=== PATIENT | female | born 1945 | race Two or more races ===

== ENCOUNTER 2018-11-05 16:30 | Inpatient (IN) | payer SELFPAY ==
[~2018-11-05] VITALS: Ht 144.8 cm; Wt 41.6 kg
[2018-11-05 20:02] LABS: Basophils # (auto) 0 uL; Basophils % (auto) 0.5 % (0.0-2.0); Eosinophils # (auto) 0.3 uL; Eosinophils % (auto) 3.8 % (0.0-7.0); Hematocrit 41.1 % (36.0-46.0); Hemoglobin 13.5 g/dL (12.2-16.2); Lymphocytes # (auto) 1.9 uL; Lymphocytes % (auto) 25.2 % (10.0-50.0); Monocytes # (auto) 0.7 uL; Monocytes % (auto) 8.6 % (0.0-12.0); Neutrophils # (auto) 4.8 uL; Neutrophils % (auto) 61.9 % (37.0-80.0); Nucleated Red Blood Cells % 0.1 %; Platelet Count (auto) 342 10^3/uL (140-450); Red Blood Cells 4.83 10^6/uL (4.0-5.20); Red Cell Distribution Width 13.3 % (11.8-14.3); White Blood Cell 7.7 10^3/uL (4.4-10.8)
[2018-11-05 20:16] LABS: INR 0.92 (0.9-1.15); Partial Thromboplastin Time 26.4 sec (23.78-33.04); Prothrombin Time 9.9 sec (9.27-12.13)
[2018-11-05 20:17] LABS: Albumin 3.4 g/dL (3.4-5.0); BUN/Creatinine Ratio 29.6; Calcium 8.7 mg/dL (8.5-10.1); Potassium 4.2 mmol/L (3.5-5.1)
[2018-11-05 20:20] LABS: Bilirubin, Total 0.2 mg/dL (0.2-1.0)
[2018-11-06] VITALS (7 sets, daily range): BP systolic 73–150; BP diastolic 50–78
[2018-11-06] MEDS ORDERED: ACETAMINOPHEN 500 MG TAB PO PRN (00:15)
[2018-11-06] MEDS ORDERED: MORPHINE SULFATE 4 MG/ML SYR/VIAL IV PRN ×2 (00:15→12:15)
[2018-11-06] MEDS ORDERED: DEXTROSE (50%) 50ML SYRG IV PRN ×2 (00:15→12:15)
[2018-11-06] MEDS ORDERED: HYDROcodone-ACET 5/325MG TAB PO PRN (00:15)
--- NOTE | 2018-11-06 00:33 | NUR ---
PATIENT ARRIVED TO UNIT Patient arrived on unit via stretcher from ER. Patient was successfully transferred from stretcher to bed with no complications. Patient is A&O X's 4, no distress noted. Patient c/o right hip pain 05/13. Educated patient and family of pain medication that will be provided per orders. They verbalized understanding. Patient is lithuanian speaking only. Son and Daughter is at bedside available to translate. They were educated about using the call light for assistance and the unit. Patient wearing diaper brought from home. Educated patient and family that this is a diaper free facility and different options and measures are taken in substitute of diapers. They stated that they understood but would like to keep the diaper on just for the night. Bed is in lowest/locked position with side rails up X's 2. Call light is within reach of patient. Will continue to monitor and round hourly.
[2018-11-06 00:55] LABS: Basophils # (auto) 0.1 uL; Eosinophils # (auto) 0.3 uL; Eosinophils % (auto) 5.1 % (0.0-7.0); Hematocrit 38.4 % (36.0-46.0); Hemoglobin 12.5 g/dL (12.2-16.2); Lymphocytes % (auto) 30.4 % (10.0-50.0); Mean Corpuscular Hemoglobin 27.7 pg (28.0-32.0); Mean Corpuscular Hgb Conc. 32.7 g/dL (32.0-36.0); Mean Corpuscular Volume 84.7 fL (80.0-100.0); Monocytes # (auto) 0.5 uL; Monocytes % (auto) 7.7 % (0.0-12.0); Neutrophils # (auto) 3.6 uL; Neutrophils % (auto) 55.8 % (37.0-80.0); Platelet Count (auto) 337 10^3/uL (140-450); Red Blood Cells 4.53 10^6/uL (4.0-5.20); Red Cell Distribution Width 12.9 % (11.8-14.3); White Blood Cell 6.5 10^3/uL (4.4-10.8)
[2018-11-06] MEDS ORDERED: METF-371 PO (03:32)
[2018-11-06] MEDS ORDERED: PREG150C PO (03:32)
[2018-11-06] MEDS: ACCU-CHEK COMFORT CURVE STRIP VI SCH ×3 (06:01→18:16)
[2018-11-06] MEDS: InsuLIN REG 1unit/0.01ml Soln (100units/ml) SC SCH ×3 (06:02→18:17)
--- NOTE | 2018-11-06 08:00 | NUR ---
Opening Shift Note Assumed care of patient, awake and alert. No S/S of distress/SOB or pain. Patient on fall precaution. Instructed on POC and to call for assist PRN, will continue to monitor for changes Q1hr and PRN.
[2018-11-06] MEDS ORDERED: ONDANSETRON HCL 4 MG/2 ML VIAL IV PRN (12:15)
--- NOTE | 2018-11-06 17:30 | NUR ---
Ortho Consult Dr. Ruffin at bedside. Patient and family were advised about the risks and benefits of the planned surgery. Will continue care. Addendum: 11/06/18 at 1853 by Chhaya Blanton RN No definite date yet for the surgery.
--- NOTE | 2018-11-06 19:00 | NUR ---
OPENING SHIFT NOTE Received report from day shift RN. Patient is A&O X's 4 with no distress noted. Family is at bedside. Patient and family were educated on POC. They verbalized understanding. Patient reports no pain at this moment. Bed is in lowest/locked position with side rails up X's 2, call light is within reach of patient. Will continue to monitor and round hourly.
[2018-11-06] MEDS: PREGABALIN CAPSULE 75 MG CAP PO SCH (21:40)
[2018-11-07] MEDS: InsuLIN REG 1unit/0.01ml Soln (100units/ml) SC SCH ×5 (00:04→23:51)
[2018-11-07] MEDS: ACCU-CHEK COMFORT CURVE STRIP VI SCH ×5 (00:05→23:50)
[2018-11-07 05:15] VITALS: BP 125/65
--- NOTE | 2018-11-07 08:00 | NUR ---
Opening Shift Note Assumed care of patient, awake and alert, Romansh speaking. No S/S of distress/SOB or pain. Patient has right femoral arthroplasty dislocation secondary to fall. Ortho consult been done yesterday with Dr. Ruffin. Family at bedside. Turned to sides every 2 hours with caution. Instructed on POC and to call for assist PRN, will continue to monitor for changes Q1hr and PRN.
[2018-11-07 08:05] LABS: Urine Bacteria MANY /hpf (None Seen); Urine Blood 1+ /uL (Negative); Urine Specific Gravity 1.011 (1.001-1.035); Urine WBC 54 /hpf (0 - 5); Urine WBC Clumps PRESENT /hpf (None Seen)
[2018-11-07 09:00] VITALS: BP 117/64
[2018-11-07] MEDS: PREGABALIN CAPSULE 75 MG CAP PO SCH ×2 (09:41→22:02)
[2018-11-07 13:00] VITALS: BP 126/97
--- NOTE | 2018-11-07 13:30 | NUR ---
Cancelled social service consult for reported no PCP. Patient doesn't have insurance. Per Susan, case management Elmo will talk about this to the patient and family. Will continue care.
[2018-11-07 17:00] VITALS: BP 119/66
--- NOTE | 2018-11-07 18:55 | NUR ---
Dr. Farrell at bedside, new orders received. Patient is for urine bacterial culture collection via straight catheterization. Patient is eating dinner at this time, wasn't able to collect urine for culture. Materials for straight catheterization at bedside. Will give report to the security guard dispatcher RN.
--- NOTE | 2018-11-07 19:30 | NUR ---
Opening shift note Patient in bed alert and oriented x 4, verbally coherent able to make needs known, however Georgian speaking only. Patient's family at bedside for translation. Patient's respiration even and unlabored, denies pain and discomfort at this time. Plan of care discussed, patient and family verbalized understanding. All needs attended, will continue to monitor.
[2018-11-07 22:00] VITALS: BP 126/63
[2018-11-08] MEDS: ACCU-CHEK COMFORT CURVE STRIP VI SCH ×3 (05:16→17:53)
[2018-11-08] MEDS: InsuLIN REG 1unit/0.01ml Soln (100units/ml) SC SCH ×3 (05:17→18:05)
[2018-11-08 05:39] VITALS: BP 129/63
--- NOTE | 2018-11-08 07:30 | NUR ---
Opening Shift Note Assumed care of patient, awake and alert. No S/S of distress/SOB or pain. Instructed on POC and to call For assist PRN, will continue to monitor for changes Q1hr and PRN. PT DENIES PAIN ON RIGHT HIP.
[2018-11-08 09:00] VITALS: BP 97/66
[2018-11-08] MEDS: PREGABALIN CAPSULE 75 MG CAP PO SCH ×2 (10:13→21:25)
[2018-11-08] MEDS: INSULIN LANTUS (GLARGINE) 1 /0.01ml (100units/ml) SC SCH (10:14)
[2018-11-08 13:00] VITALS: BP 117/56
--- NOTE | 2018-11-08 14:34 | NUR ---
NUTRITION CONSULT/ASSESSMENT NOTES Please refer to link notes of nutrition screen form filed under the intervention section of the plan of care for further details. Est. Needs based on IBW (43 kg): 1300 kcal to 1500 kcal (30-35 kcal/kgIBW), 43 gms to 52 gms pro (1.0-1.2 gms/kgIBW). Will continue to monitor pertinent labs and reassess nutrient need prn Thank you for this consult. Addendum: 11/08/18 at [address] Amended: Links added.
--- NOTE | 2018-11-08 16:30 | NUR ---
DR ARCE AT BEDSIDE. PT AWARE OF POSSIBLE SURGERY ON SATURDAY. AWAITING FOR CARDIAC CLEARANCE.
--- NOTE | 2018-11-08 17:00 | NUR ---
CARDIAC CONSULT CALLED IN FOR SURGICAL CLEARANCE PER DR GONZALES, HE WILL SEE PT TOMORROW.
[2018-11-08 17:17] VITALS: BP 133/68
--- NOTE | 2018-11-08 18:06 | NUR ---
SON AT BEDSIDE. UPDATED WITH PT'S PLAN OF CARE. AWARE OF POSSIBLE SURGERY ON SATURDAY PENDING CARDIAC CLEARANCE.
--- NOTE | 2018-11-08 19:41 | NUR ---
CLOSING NOTES PT RESTING IN BED. NO DISTRESS NOTED. DENIES PAIN OR SOB. REPORT GIVEN TO STEVENSON HUTCHISON.
--- NOTE | 2018-11-08 19:45 | NUR ---
Opening Shift Note Assumed care of patient, awake and alert. No S/S of distress/SOB or pain. Instructed on POC and to call for assist PRN, will continue to monitor for changes Q1hr and PRN.
[2018-11-08] MEDS: Glucerna Carbsteady SHAKE Chocolate 8oz PO SCH (21:25)
[2018-11-08] MEDS: HYDROcodone-ACET 5/325MG TAB PO PRN (22:55)
[2018-11-08 23:04] VITALS: BP 129/67
[2018-11-09 05:30] VITALS: BP 117/69
[2018-11-09] MEDS: InsuLIN REG 1unit/0.01ml Soln (100units/ml) SC SCH ×4 (06:46→18:24)
[2018-11-09] MEDS: ACCU-CHEK COMFORT CURVE STRIP VI SCH ×4 (06:46→18:24)
[2018-11-09] MEDS: Glucerna Carbsteady SHAKE Chocolate 8oz PO SCH ×3 (06:46→22:00)
--- NOTE | 2018-11-09 07:07 | NUR ---
CARE ENDORSED TO DAY NURSE AFTER SBAR REPORT GIVEN. PATIENT RESTING IN BED. NO DISTRESS NOTE.
--- NOTE | 2018-11-09 07:30 | NUR ---
Opening Shift Note Assumed care of patient, awake and alert. No S/S of distress/SOB or pain. Insructed on POC and to callfor assist PRN, will continue to monitor for changes Q1hr and PRN.
[2018-11-09 09:33] VITALS: BP 118/62
[2018-11-09] MEDS: INSULIN LANTUS (GLARGINE) 1 /0.01ml (100units/ml) SC SCH (11:25)
[2018-11-09] MEDS: PREGABALIN CAPSULE 75 MG CAP PO SCH ×2 (11:25→22:02)
--- NOTE | 2018-11-09 11:30 | NUR ---
DR GONZALES AT BEDSIDE. PER , AN ECHO IS ORDERED FOR PT. HE WILL READ IT BY TONIGHT AND CONTACT DR KERNS IF ECHO IS OK AND SURGERY WILL BE SCHEDULED FOR TOMORROW.
[2018-11-09 13:00] VITALS: BP 130/65
--- NOTE | 2018-11-09 13:00 | NUR ---
PT NOTES PT EATING LUNCH. FAMILY AT BEDSIDE. PT HAD BEEN DENYING ANY PAIN ON HER LEG
[2018-11-09 17:34] VITALS: BP 149/60
--- NOTE | 2018-11-09 18:21 | NUR ---
SURGICAL CONSENTS NOT SIGNED PER PT, SHE HASN'T TALKED TO THE SURGEON ABOUT THE PROCEDURE YET. BLANK CONSENTS WILL BE IN THE CHART.
--- NOTE | 2018-11-09 19:30 | NUR ---
CLOSING NOTES REPORT GIVEN TO STEVENSON RAUSCH RN. PT IN BED, RESTING AND WATCHING TV. DENIES PAIN. FAMILY AT BEDSIDE. NO DISTRESS NOTED.
--- NOTE | 2018-11-09 19:31 | NUR ---
Opening Shift Note Assumed care of patient, awake and alert. Family on bedside No S/S of distress/SOB or pain. Instructed on POC and to call for assist PRN, will continue to monitor for changes Q1hr and PRN.
[2018-11-09 22:00] VITALS: BP 128/67
[2018-11-09] MEDS: HYDROcodone-ACET 5/325MG TAB PO PRN (22:03)
[2018-11-10 05:30] VITALS: BP 147/73
[2018-11-10] MEDS: Glucerna Carbsteady SHAKE Chocolate 8oz PO SCH ×3 (06:00→21:40)
[2018-11-10] MEDS: InsuLIN REG 1unit/0.01ml Soln (100units/ml) SC SCH ×5 (06:00→23:40)
[2018-11-10] MEDS: ACCU-CHEK COMFORT CURVE STRIP VI SCH ×5 (06:19→23:40)
[2018-11-10 08:00] VITALS: BP 111/62
[2018-11-10] MEDS ORDERED: ETOMIDATE (2MG/ML) 20ML VIAL IV ONE (08:01)
[2018-11-10] MEDS ORDERED: LIDOCAINE 1% INJ PF 5ML AMP ONE (08:01)
[2018-11-10] MEDS ORDERED: MIDAZOLAM HCL 1MG/1ML-2 ML VIAL ONE ×2 (08:01→16:10)
[2018-11-10 08:40] VITALS: BP 111/62
[2018-11-10] MEDS ORDERED: cefTRIAXone 1GM/50ML D5W 50 ML IV ONE (09:30)
[2018-11-10 10:46] LABS: Basophils # (auto) 0.1 uL; Basophils % (auto) 0.9 % (0.0-2.0); Eosinophils # (auto) 0.3 uL; Eosinophils % (auto) 3.4 % (0.0-7.0); Hemoglobin 13.1 g/dL (12.2-16.2); Lymphocytes # (auto) 1.2 uL; Lymphocytes % (auto) 16.3 % (10.0-50.0); Mean Corpuscular Hemoglobin 28.4 pg (28.0-32.0); Mean Corpuscular Hgb Conc. 33.7 g/dL (32.0-36.0); Mean Corpuscular Volume 84.5 fL (80.0-100.0); Monocytes # (auto) 0.6 uL; Monocytes % (auto) 8.3 % (0.0-12.0); Neutrophils # (auto) 5.4 uL; Neutrophils % (auto) 71.1 % (37.0-80.0); Nucleated Red Blood Cells % 0.1 %; Platelet Count (auto) 302 10^3/uL (140-450); Red Blood Cells 4.62 10^6/uL (4.0-5.20); Red Cell Distribution Width 13.3 % (11.8-14.3); White Blood Cell 7.5 10^3/uL (4.4-10.8)
[2018-11-10] MEDS: PREGABALIN CAPSULE 75 MG CAP PO SCH ×2 (10:47→21:40)
[2018-11-10] MEDS: INSULIN LANTUS (GLARGINE) 1 /0.01ml (100units/ml) SC SCH (10:47)
[2018-11-10 11:05] LABS: Calcium 8.6 mg/dL (8.5-10.1); Potassium 4.5 mmol/L (3.5-5.1)
[2018-11-10 11:08] LABS: BUN/Creatinine Ratio 32.5
[2018-11-10 13:00] VITALS: BP 123/62
--- NOTE | 2018-11-10 15:55 | NUR ---
Patient to Pre-op for procedure. vs WNL and patient does not appear to be in distress. Report Given to Katherin in the recovery room.
[2018-11-10] MEDS ORDERED: PROPOFOL 10 MG/ML 20 ML IV ONE (16:10)
[2018-11-10] MEDS ORDERED: ONDANSETRON HCL 4 MG/2 ML VIAL ONE (16:10)
[2018-11-10] MEDS ORDERED: fentaNYL CITRATE 100 MCG/2 ML VL ONE (16:10)
[2018-11-10] MEDS ORDERED: SODIUM CHLORIDE LOCK 10 ML ONE (16:10)
[2018-11-10] MEDS ORDERED: METOCLOPRAMIDE HCL 5MG/ml INJ 2ml VIAL IV ONE (17:15)
[2018-11-10] MEDS ORDERED: HYDROmorphone HCL 2 MG/ML VL IV PRN (17:15)
[2018-11-10] MEDS ORDERED: ACCU-CHEK COMFORT CURVE STRIP VI ONE (17:15)
--- NOTE | 2018-11-10 17:56 | NUR ---
PATIENT BACK FROM PROCEDURE. COMPLETE PROCEDURE COULD NOT BE DONE. CLOSED REDUCTION ATTEMPTED, BUT PATIENT WILL NEED MORE INVASIVE PROCEDURES. PATIENT IS REPORTING A COUGH THAT THE RECOVERY NURSE ATTRIBUTES TO ANESTHESIA. PATIENT IS REPORTING SLIGHT DISCOMFORT TO THE RIGHT HIP. WILL CONTINUE TO MONITOR. CALL RODRIGUEZ WITHIN REACH AND PATIENT IS ENCOURAGED TO CALL IF THEY NEED ANYTHING.
[2018-11-10] MEDS: LACTATED RINGER'S 1,000 ML IV SCH (18:14)
--- NOTE | 2018-11-10 19:45 | NUR ---
ASSUMED CARE, PT. AWAKE, MALIAN SPEAK ONLY, RELATIVES AT BEDSIDE, NO C/O PAIN, NO SOB.
[2018-11-10] MEDS: SODIUM CHLOR 0.9% PF (SALINE LOCK) 10ML VIAL/SYR IV SCH (21:40)
[2018-11-10 21:57] VITALS: BP 148/79
[2018-11-11] MEDS: LACTATED RINGER'S 1,000 ML IV SCH ×2 (02:30→12:30)
[2018-11-11 05:25] VITALS: BP 119/62
[2018-11-11] MEDS: ACCU-CHEK COMFORT CURVE STRIP VI SCH ×2 (05:30→11:46)
[2018-11-11] MEDS: Glucerna Carbsteady SHAKE Chocolate 8oz PO SCH ×2 (05:30→12:54)
[2018-11-11] MEDS: InsuLIN REG 1unit/0.01ml Soln (100units/ml) SC SCH ×2 (05:30→11:46)
[2018-11-11] MEDS: SODIUM CHLOR 0.9% PF (SALINE LOCK) 10ML VIAL/SYR IV SCH ×2 (05:31→12:54)
[2018-11-11 05:53] LABS: Basophils # (auto) 0.1 uL; Basophils % (auto) 0.7 % (0.0-2.0); Eosinophils # (auto) 0.3 uL; Eosinophils % (auto) 3.7 % (0.0-7.0); Hematocrit 38.9 % (36.0-46.0); Hemoglobin 13.1 g/dL (12.2-16.2); Lymphocytes # (auto) 2.3 uL; Mean Corpuscular Hemoglobin 28.5 pg (28.0-32.0); Mean Corpuscular Hgb Conc. 33.6 g/dL (32.0-36.0); Monocytes # (auto) 0.6 uL; Monocytes % (auto) 7.5 % (0.0-12.0); Neutrophils # (auto) 4.8 uL; Neutrophils % (auto) 59.1 % (37.0-80.0); Platelet Count (auto) 341 10^3/uL (140-450); Red Blood Cells 4.58 10^6/uL (4.0-5.20); Red Cell Distribution Width 13.5 % (11.8-14.3); White Blood Cell 8.1 10^3/uL (4.4-10.8)
[2018-11-11 06:03] LABS: Potassium 3.9 mmol/L (3.5-5.1)
--- NOTE | 2018-11-11 06:10 | NUR ---
V/S STABLE, REPOSITIONED PT. NO C/O PAIN, NOT IN DISTRESS.
[2018-11-11 06:13] LABS: BUN/Creatinine Ratio 29.5; Calcium 8.9 mg/dL (8.5-10.1)
[2018-11-11] MEDS: INSULIN LANTUS (GLARGINE) 1 /0.01ml (100units/ml) SC SCH (08:05)
[2018-11-11] MEDS: PREGABALIN CAPSULE 75 MG CAP PO SCH (08:05)
[2018-11-11 09:00] VITALS: BP 137/65
[2018-11-11] MEDS ORDERED: cefTRIAXone 1GM/50ML D5W 50 ML IV SCH (09:00)
[2018-11-11] MEDS ORDERED: ENOXAPARIN SOD 40 MG/0.4 ML SYRINGE SC SCH (10:00)
--- NOTE | 2018-11-11 13:53 | NUR ---
patient is alert and oriented x4 with no distress noted, family at bedside. patient/and family verbalized understanding that sugar level has to be controlled before surgery can be performed to right hip, also to follow up with primary and ortho surgeon within one and two weeks as ordered, non weight bearing to right hip, signed discharge forms, iv removed and intact. family assisted patient to her own wheelchair, patient tolerated transfer well, denies pain, patient stable. discharged with family.
== END 2018-11-11 14:00 | disposition home or self-care (01) | DRG 560 ==
LOC: ER 16:37 → OVERFLOW 11-06 00:19 → CENTRAL 11-06 00:35
PROVIDERS: ADMIT Nurse Practitioner Family; ATTEND Internal Medicine
PROC: 0SJ9XZZ Inspection of Right Hip Joint, External Approach (ICD-10-PCS; principal; 2018-11-10 16:10)
DX: T84.020A Dislocation of internal right hip prosthesis, initial encounter (principal); E46 Unspecified protein-calorie malnutrition; N39.0 Urinary tract infection, site not specified; Z68.1 Body mass index [BMI] 19.9 or less, adult; W18.39XA Other fall on same level, initial encounter; Y93.89 Activity, other specified; Y92.89 Other specified places as the place of occurrence of the external cause; Y99.8 Other external cause status; E11.40 Type 2 diabetes mellitus with diabetic neuropathy, unspecified; E11.51 Type 2 diabetes mellitus with diabetic peripheral angiopathy without gangrene; E11.65 Type 2 diabetes mellitus with hyperglycemia; E86.0 Dehydration; J44.9 Chronic obstructive pulmonary disease, unspecified; Y79.2 Prosthetic and other implants, materials and accessory orthopedic devices associated with adverse incidents; Z79.4 Long term (current) use of insulin; M62.451 Contracture of muscle, right thigh
CPT/HCPCS: 36415; 71045; 73502; 80048; 80053; 81001; 82962; 83036; 85025; 85610; 85730; 86850; 86900; 86901; 87086; 93005; 93306; 96372; G0378; J0696; J1815; J2250; J2405; J2704